=== PATIENT | female | born 1965 | race Caucasian/White ===

== ENCOUNTER 2023-08-27 06:12 | Day surgery (SDC) | payer OTHER ==
[2023-08-27 06:28] VITALS: RESP 18
[2023-08-27] MEDS ORDERED: Lactated Ringers 1,000 ML IV SCH (06:30)
[2023-08-27] MEDS ORDERED: Xylocaine-Mpf 2% 5 Ml Vial ONE (07:49)
[2023-08-27] MEDS ORDERED: Versed 2 MG/2 ML Injection ONE (07:50)
[2023-08-27] MEDS ORDERED: DIPRIVAN 200 MG/20 ML IV ONE ×2 (07:50→08:12)
[2023-08-27 08:55] LABS: Absolute Neutrophil Ct (ANC) 4.23 x10^3/uL (1.4-6.9); BASOPHIL % 0.5 % (0.0-0.4); Basophil (Absolute #) 0.03 x10^3/uL (0-0.4); Eosinophil (Absolute #) 0.06 x10^3/uL (0-0.5); Hematocrit 33.2 % (35-47); Hemoglobin 9.6 g/dL (12.0-16.0); IMMATURE GRAN # 0.02 x10^3u/L (0.00-0.03); IMMATURE GRAN % 0.3 % (0.00-0.4); Lymphocyte (Absolute #) 1.37 x10^3/uL (1.0-4.6); Lymphocytes % 22.6 % (24.0-44.0); Mean Cell Volume 78.5 fL (78-100); Mean Corpuscular Hemoglobin 22.7 pg (26-32); Mean Corpuscular Hgb Concent. 28.9 g/dL (32-36); Mean Platelet Volume 10.6 fL (7.5-11.0); Monocyte (Absolute #) 0.35 x10^3/uL (0.0-1.3); Monocytes % 5.8 % (0.0-12.0); Neutrophil % 69.8 % (36.0-66.0); Platelet Count 213 x10^3/uL (150-450); Red Blood Count 4.23 x10^6/uL (4.1-5.4); Red Cell Distribution Width 16.5 % (11.5-14.0); White Blood Count 6.1 x10^3/uL (4.0-10.5)
[2023-08-27 09:08] LABS: ALBUMIN 4.1 g/dL (3.5-5.0); ANION GAP 13.9 MEQ/L (5-15); BILIRUBIN,TOTAL 0.2 mg/dL (0.2-1.3); Calcium 8.8 mg/dL (8.4-10.2); Creatinine 1 0.75 mg/dL (0.52-1.04); EST GLOMERULAR FILTRATION RATE 91.7 ML/MIN; Total Protein 6.9 g/dL (6.3-8.2)
[2023-08-27 09:17] VITALS: O2SAT 93
[2023-08-27 09:34] LABS: Slide Review 1 YES
[2023-08-27 10:01] VITALS: BP 154/94; PULSE 84; TEMP 98.2
--- NOTE | 2023-08-27 10:13 | XRAY ---
Indication: Sigmoid mass on colonoscopy. Multiple contiguous axial images obtained through the abdomen and pelvis prior to and following 80 cc Isovue 370 contrast as ordered. Comparison: None Lung bases demonstrate dependent atelectasis. No infiltrate or effusion. Heart not enlarged. Noncontrasted images negative for pathologic visceral calcification/calculi. Noncontrasted stomach and bowel loops appear nonobstructed. No free fluid/air. Postcontrast images demonstrates normal visceral enhancement and renal excretion. Remaining liver, gallbladder, pancreas, spleen, adrenal glands, kidneys, ureters, bladder, and uterus are unremarkable. Mild scattered aortoiliac calcifications. No AAA or pathologic retroperitoneal lymphadenopathy. Osseous structures intact with minimal degenerative changes throughout the lumbar spine. No suspicious bony lesions. Impression: Mild arteriosclerotic disease and lung dependent atelectasis. Remaining CT abdomen/pelvis with and without contrast exam is negative.
--- NOTE | 2023-08-27 15:06 | OP ---
SURGERY DATE/TIME: 08/27/2023 0751 PREOPERATIVE DIAGNOSIS: Positive Cologuard test. POSTOPERATIVE DIAGNOSIS: Sigmoid colon mass. PROCEDURE: Colonoscopy with cold forceps biopsy. SURGEON: Dr. Koch. ANESTHESIA: Medications given by anesthesia department. HISTORY: The patient is a 58-year-old white female presenting now for colonoscopy after having had a positive Cologuard. The patient also reports she has been having some bleeding that she thought was just due to her hemorrhoid. The patient was felt to need to have endoscopic evaluation. She was described of the risks of the procedure including the risk of perforation, phlebitis, untoward reaction to medication, bleeding and missed lesions. The patient verbalized her understanding and desired to have the procedure performed. DESCRIPTION OF PROCEDURE: The patient was given the medications by the anesthesia department. She had continuous pulse oximetry, ECG monitoring and intermittent blood pressure monitoring during the examination. She was placed in the left lateral decubitus position. A digital rectal examination was performed and revealed normal anal sphincter tone and no masses. The flexible Olympus pediatric colonoscope was used to intubate the rectum. A view of the colon was developed sequentially to the cecum. Upon insertion and withdrawal was noted a large colon polyp/mass which was biopsied multiple times using cold forceps biopsy instrument. It is not felt that it could be removed with a snare due to its size. No other polyps or lesions were noted in the colon. The scope was withdrawn and the patient was taken to the recovery room in good condition. The prep was noted to be fair to good.
== END 2023-08-27 10:05 | disposition home or self-care (01) ==
LOC: SDC 06:12
PROVIDERS: ATTEND Family Medicine
DX: C18.7 Malignant neoplasm of sigmoid colon (principal); R19.5 Other fecal abnormalities
CPT/HCPCS: 36415; 74178; 80053; 82378; 85025; J2250; J2704

== ENCOUNTER 2023-09-15 09:21 | Inpatient (IN) | payer OTHER ==
[2023-09-15] MEDS ORDERED: Lactated Ringers 1,000 ML IV SCH (09:30)
[2023-09-15] MEDS ORDERED: MEFOXIN 2 GM PREMIX** 2 GM/50 ML ML IV SCH (10:00)
[2023-09-15] MEDS ORDERED: MEFOXIN 2 GM PREMIX** 2 GM/50 ML ML IV ONE (10:04)
[2023-09-15] MEDS ORDERED: Lactated Ringers 1,000 ML IV ONE ×2 (10:05→12:01)
[2023-09-15 10:21] LABS: Absolute Neutrophil Ct (ANC) 5.49 x10^3/uL (1.4-6.9); BASOPHIL % 0.6 % (0.0-0.4); Basophil (Absolute #) 0.05 x10^3/uL (0-0.4); Eosinophil % 1.2 % (0.00-5.0); Eosinophil (Absolute #) 0.09 x10^3/uL (0-0.5); Hematocrit 38.7 % (35-47); Hemoglobin 11.5 g/dL (12.0-16.0); IMMATURE GRAN # 0.01 x10^3u/L (0.00-0.03); IMMATURE GRAN % 0.1 % (0.00-0.4); Lymphocyte (Absolute #) 1.67 x10^3/uL (1.0-4.6); Lymphocytes % 21.5 % (24.0-44.0); Mean Cell Volume 77.7 fL (78-100); Mean Corpuscular Hemoglobin 23.1 pg (26-32); Mean Corpuscular Hgb Concent. 29.7 g/dL (32-36); Mean Platelet Volume 11.1 fL (7.5-11.0); Monocyte (Absolute #) 0.46 x10^3/uL (0.0-1.3); Monocytes % 5.9 % (0.0-12.0); Neutrophil % 70.7 % (36.0-66.0); Platelet Count 252 x10^3/uL (150-450); Red Blood Count 4.98 x10^6/uL (4.1-5.4); Red Cell Distribution Width 17.7 % (11.5-14.0); White Blood Count 7.8 x10^3/uL (4.0-10.5)
[2023-09-15 10:34] LABS: ANION GAP 13.6 MEQ/L (5-15); Calcium 9.1 mg/dL (8.4-10.2); Creatinine 1 0.7 mg/dL (0.52-1.04); EST GLOMERULAR FILTRATION RATE 99.6 ML/MIN
[2023-09-15] MEDS ORDERED: Pre-Attached Lta Kit TP ONE (10:48)
[2023-09-15] MEDS ORDERED: OFIRMEV 100 ML IV ONE (10:48)
[2023-09-15] MEDS ORDERED: Sensorcaine 0.25% 10 ML ONE (10:51)
[2023-09-15] MEDS ORDERED: Zemuron 100 MG/10 ML ONE (10:53)
[2023-09-15] MEDS ORDERED: Decadron 4 MG INJ ONE (10:53)
[2023-09-15] MEDS ORDERED: DIPRIVAN 200 MG/20 ML IV ONE ×2 (10:53→11:42)
[2023-09-15] MEDS ORDERED: BRIDION 200MG/2ML IV ONE (10:53)
[2023-09-15] MEDS ORDERED: Xylocaine-Mpf 2% 5 Ml Vial ONE (10:53)
[2023-09-15] MEDS ORDERED: Versed 2 MG/2 ML Injection ONE (10:53)
[2023-09-15] MEDS ORDERED: Zofran 4 MG/2 ML VIAL ONE ×2 (10:53→14:03)
[2023-09-15] MEDS ORDERED: SUBLIMAZE 100 MCG/2 ML ONE ×3 (10:57→14:04)
[2023-09-15] MEDS ORDERED: Ephedrine Sulfate 50 MG/ML ONE (11:48)
[2023-09-15] MEDS ORDERED: DEXMEDETOMIDINE 80 MCG/20ML-NS IV ONE (12:04)
[2023-09-15] MEDS ORDERED: Hydromorphone 1 mg/ml Injection ONE (14:23)
[2023-09-15] MEDS: MORPHINE SULFATE 2 MG INJ IV PRN ×2 (16:21→18:18)
[2023-09-15] MEDS: D5W/0.45NS W/ 20mEq KCl 1000 ML 1,000 ML IV SCH (17:38)
[2023-09-15] MEDS: MEFOXIN 1 Gm/ D5W 50 Ml** 1 G/50 ML ML IV SCH ×2 (17:38→23:20)
[2023-09-15] MEDS: NORCO 7.5/325 MG TAB PO PRN ×2 (20:04→23:53)
[2023-09-16] MEDS: D5W/0.45NS W/ 20mEq KCl 1000 ML 1,000 ML IV SCH ×2 (03:20→14:42)
[2023-09-16] MEDS: NORCO 7.5/325 MG TAB PO PRN ×5 (04:58→21:15)
[2023-09-16] MEDS: MEFOXIN 1 Gm/ D5W 50 Ml** 1 G/50 ML ML IV SCH ×2 (05:01→11:02)
[2023-09-16 05:44] LABS: Hematocrit 33.2 % (35-47); Hemoglobin 9.8 g/dL (12.0-16.0); Mean Cell Volume 78.5 fL (78-100); Mean Corpuscular Hemoglobin 23.2 pg (26-32); Mean Corpuscular Hgb Concent. 29.5 g/dL (32-36); Mean Platelet Volume 11.1 fL (7.5-11.0); Platelet Count 223 x10^3/uL (150-450); Red Blood Count 4.23 x10^6/uL (4.1-5.4); Red Cell Distribution Width 18.1 % (11.5-14.0); White Blood Count 14.8 x10^3/uL (4.0-10.5)
[2023-09-16] MEDS: Singulair 10 MG PO SCH (09:06)
[2023-09-16] MEDS: FEOSOL 325 MG PO SCH (09:06)
[2023-09-16] MEDS: Paxil 20 MG PO SCH (09:07)
[2023-09-16] MEDS: Protonix 40MG Tablet PO SCH (09:07)
[2023-09-16] MEDS: ENOXAPARIN SODIUM SQ SCH ×2 (09:07→21:15)
[2023-09-16] MEDS: SYNTHROID 88 MCG PO SCH (09:08)
[2023-09-16] MEDS ORDERED: NON-FORMULARY ITEM (Omeprazole [Omeprazole] 20 MG Capsule.Dr) PO SCH (10:00)
[2023-09-16] MEDS: Sodium Chloride 0.9% 1000 ML 1,000 ML IV SCH (16:35)
[2023-09-16] MEDS: Zofran 4 MG/2 ML VIAL IV PRN (22:46)
[2023-09-17] MEDS ORDERED: Zofran 4 MG/2 ML VIAL IV STA (00:14)
[2023-09-17] MEDS: MORPHINE SULFATE 2 MG INJ IV PRN (01:25)
[2023-09-17] MEDS: Sodium Chloride 0.9% 1000 ML 1,000 ML IV SCH ×2 (02:12→15:44)
[2023-09-17] MEDS: NORCO 7.5/325 MG TAB PO PRN ×4 (06:24→19:20)
[2023-09-17] MEDS: ENOXAPARIN SODIUM SQ SCH ×2 (09:39→21:26)
[2023-09-17] MEDS: FEOSOL 325 MG PO SCH (09:46)
[2023-09-17] MEDS: Paxil 20 MG PO SCH (09:47)
[2023-09-17] MEDS: Singulair 10 MG PO SCH (09:50)
[2023-09-17] MEDS: Protonix 40MG Tablet PO SCH (09:50)
[2023-09-17] MEDS: SYNTHROID 88 MCG PO SCH (09:51)
--- NOTE | 2023-09-17 10:56 | OP ---
SURGERY DATE/TIME: 09/16/2023 1117 PREOPERATIVE DIAGNOSIS: Biopsy proven invasive sigmoid colon cancer. The lesion was confirmed at the intraoperative preoperative flexible sigmoidoscopy today. POSTOPERATIVE DIAGNOSIS: Biopsy proven invasive sigmoid colon cancer. The lesion was confirmed at the intraoperative preoperative flexible sigmoidoscopy today. PROCEDURES: 1) Preoperative limited flexible sigmoidoscopy to 40. 2) Sigmoid colon resection with primary anastomosis for cancer. SURGEON: Hardeep Rodriguez M.D. ANESTHESIA: General. ESTIMATED BLOOD LOSS: None. DRAINS: none. CONDITION: Stable. INDICATION: A patient with a recent positive Cologuard, positive colonoscopy. Sigmoid biopsy showed invasive cancer. She was immediately scheduled for intervention. DESCRIPTION OF PROCEDURE: She was taken to surgery. General anesthetic. Left side down, right side up. Anal digital examination satisfactory. Scope introduced. The lesion was at 16 cm. The lesion consistent with the biopsy which showed invasive cancer. A lower midline incision and the left gutter was loosened up. The sigmoid was taken away from the ovary. There was a little bit of old endometriosis. Both ovaries are small. Uterus is becoming significantly atrophic. Just a wisp of suggestion of chocolate cyst disease in the pelvis. The sigmoid mobilized from the left tube and ovary. A formal sigmoid colon resection backing off the sigmoid rectal junction coming up the descending colon, sigmoid junction. Mesentery taken down to the presacral promontory taken with a ligature in a wedge-type fashion. Hemostasis satisfactory. Left ureter was out of the field. Right ureter was clearly out of the field. Side began. The side was long enough to resect another 1 inch off of the proximal and sent as additional proximal margin. Hand sewn side-to-end anastomosis was placed and tied down. Anterior lip placed and tied down. There was no blood loss. There was no drainage. There were no drains placed. The field was irrigated and suctioned around the uterus, a little bit of broad band anterior abdominal wall closed with looped 0 PDS. Copiously irrigated with saline. Skin closed with patsy. Sterile dressing applied. Specimen and findings were discussed with the family in the waiting room. Very encouraging. Polypoid was just trace on the base. No palpable lymph nodes. Early stage lesion.
[2023-09-18] MEDS: NORCO 7.5/325 MG TAB PO PRN ×3 (00:56→22:21)
[2023-09-18] MEDS: ENOXAPARIN SODIUM SQ SCH ×2 (09:54→21:37)
[2023-09-18] MEDS: Paxil 20 MG PO SCH (09:55)
[2023-09-18] MEDS: Protonix 40MG Tablet PO SCH (09:55)
[2023-09-18] MEDS: Singulair 10 MG PO SCH (09:56)
[2023-09-18] MEDS: FEOSOL 325 MG PO SCH (09:56)
[2023-09-18] MEDS: SYNTHROID 88 MCG PO SCH (09:57)
[2023-09-18] MEDS: Zofran 4 MG/2 ML VIAL IV PRN ×2 (12:47→21:37)
[2023-09-18] MEDS: MORPHINE SULFATE 2 MG INJ IV PRN (12:48)
[2023-09-18] MEDS: Sodium Chloride 0.9% 1000 ML 1,000 ML IV SCH ×2 (14:47→21:37)
[2023-09-18] MEDS ORDERED: GLYCERIN ADULT SUPPOSITORY RC ONE (15:05)
[2023-09-18] MEDS ORDERED: Compazine 5 MG PO PRN (15:24)
[2023-09-18] MEDS ORDERED: MILK OF MAGNESIA 30 ML PO ONE (17:59)
[2023-09-18] MEDS: Compazine 10 MG/2 ML IV PRN (18:05)
[2023-09-19 08:15] LABS: Hematocrit 35.6 % (35-47); Hemoglobin 10.4 g/dL (12.0-16.0); Mean Corpuscular Hemoglobin 23.4 pg (26-32); Mean Corpuscular Hgb Concent. 29.2 g/dL (32-36); Platelet Count 260 x10^3/uL (150-450); Red Blood Count 4.45 x10^6/uL (4.1-5.4); Red Cell Distribution Width 18.1 % (11.5-14.0); White Blood Count 9.6 x10^3/uL (4.0-10.5)
[2023-09-19 08:22] LABS: ALBUMIN 3.6 g/dL (3.5-5.0); ANION GAP 13.7 MEQ/L (5-15); BILIRUBIN,TOTAL 0.4 mg/dL (0.2-1.3); Calcium 8.8 mg/dL (8.4-10.2); Creatinine 1 0.56 mg/dL (0.52-1.04); EST GLOMERULAR FILTRATION RATE 105.1 ML/MIN; Potassium 3.7 mmol/L (3.5-5.1); Total Protein 6.6 g/dL (6.3-8.2)
[2023-09-19] MEDS: Paxil 20 MG PO SCH (09:00)
[2023-09-19] MEDS: Singulair 10 MG PO SCH (09:00)
[2023-09-19] MEDS: SYNTHROID 88 MCG PO SCH (09:00)
[2023-09-19] MEDS: FEOSOL 325 MG PO SCH (09:01)
[2023-09-19] MEDS: ENOXAPARIN SODIUM SQ SCH ×2 (09:01→22:04)
[2023-09-19] MEDS: Protonix 40MG Tablet PO SCH (09:01)
[2023-09-19] MEDS: Sodium Chloride 0.9% 1000 ML 1,000 ML IV SCH ×3 (09:47→22:02)
--- NOTE | 2023-09-19 12:25 | PCM.HP ---
History of Present Illness - Chief Complaint Chief Complaint: sigmoid colon cancer Date: 09/19/23 History of Present Illness: is a 58 year old female with a pmhx of hypothyroidism, GERD, and anxiety admitted under Dr. Rodriguez 09/15/23 for a colon resection due to a cancerous mass. Patient is PODS# 4 with +BM, +flatus, and tolerating a CLD although she did have some nausea/vomiting yesterday. During hospitalization patient has been unable to wean off of 1L oxygen, she has been tachycardic with HR in the 130/140's, and BP has been elevated in the 180/90's. Patient endorses that her shortness of breath is mostly with exertion. She also states that she has been having a "racing heartbeat" and can "feel my heart beat in my forehead" with any exertion. She feels her pain is under control and rates it 4/10, she prefers not to use pain medication due to them making her "feel weird." Hospitalist team is consulted for medical management. - Review of Systems Constitutional: Fatigue, Weakness Eyes: No Symptoms Ears, Nose, & Throat: No Symptoms Respiratory: Short Of Breath Cardiac: Palpitations, Other (racing HR) Abdominal/Gastrointestinal: Abdominal Pain (at incision site /10) Genitourinary Symptoms: No Symptoms Musculoskeletal: No Symptoms Skin: Other (Surgical incision to LLQ abdomen) Neurological: No Symptoms Psychological: Anxiety Endocrine: No Symptoms Hematologic/Lymphatic: Anemia Immunological/Allergic: No Symptoms Medications & Allergies Home Medications: Home Medication List Omeprazole 20 mg PO DAILY 08/23/23 [History Confirmed 09/15/23] PARoxetine HCL [Paroxetine HCl] 15 mg PO DAILY 08/23/23 [History Confirmed 09/15/23] Ferrous Sulfate [Iron] 325 mg PO DAILY 09/15/23 [History Confirmed 09/15/23] Levothyroxine Sodium 88 Mcg [Synthroid 88 Mcg] 88 mcg PO DAILY 09/15/23 [History Confirmed 09/15/23] Montelukast Sodium 10 mg [Singulair 10 MG] 10 mg PO DAILY 09/15/23 [History Confirmed 09/15/23] Allergies/Adverse Reactions: Allergies Allergy/AdvReac Type Severity Reaction Status Date / Time No Known Drug Allergies Allergy Verified 09/15/23 09:28 - Past Medical History Past Medical History: Yes GI Medical History: GERD Pyscho-Social History: Anxiety Reproductive Disorders: Other Comment: eptopic - Female History Are you now?: No - Past Surgical History Past Surgical History: Yes Female Surgical History: Tubal Ligation Other Surgical History: dental work - Social History Smoking Status: Former smoker (quit 10 years ago) Exposure to second hand smoke: No Alcohol: None Drug Use: none - Physical Exam Vital Signs: Vital Signs - 24 hr Temp Pulse Resp BP Pulse Ox 09/19/23 12:00 16 09/19/23 11:55 97.3 F 113 H 16 189/91 94 L 09/19/23 08:00 16 09/19/23 07:38 98.8 F 110 H 16 172/86 94 L 09/19/23 06:53 94 L 09/19/23 04:00 97.9 F 106 H 20 143/75 95 09/19/23 00:00 18 09/18/23 23:46 99.4 F 124 H 18 165/86 94 L 09/18/23 20:00 18 09/18/23 19:27 99.2 F 108 H 16 157/75 93 L 09/18/23 19:15 93 L 09/18/23 16:00 97.9 F 114 H 15 172/77 95 General Appearance: no apparent distress Neurologic Exam: alert, oriented x 3, cooperative Eye Exam: PERRL/EOMI Ears, Nose, Throat Exam: normal ENT inspection Neck Exam: normal inspection Respiratory Exam: normal breath sounds, lungs clear Cardiovascular Exam: murmur, tachycardia Gastrointestinal/Abdomen Exam: tenderness, distention Pelvic Exam: not done Rectal Exam: deferred Back Exam: normal inspection Extremity Exam: normal inspection Skin Exam: normal color Wound Assessment: Skin/Wound Assessment Wound/Incision Assessment Start: 09/15/23 09:45 Text: Status: Active Freq: Q4H Protocol: Document 09/19/23 12:00 [facility] (Rec: 09/19/23 12:03 [facility] [id number]) Wound/Incision Assessment Anterior Abdomen Wound Assessment Shift Assessment Wound Type Incision Wound Stage Non Pressure Wound Dressing Status Dry & Intact Drainage Amount None General Appearance Clean/Dry Primary Dressing Absorbant Pad Comment Dressing C/D/I, no shadowing noted. Wound Photo Photo Taken No Results - Labs Lab/Micro Results: Lab Results-Last 24 Hours 09/19/23 09/19/23 Range/Units 07:50 07:50 WBC 9.6 (4.0-10.5) x10^3/uL RBC 4.45 (4.1-5.4) x10^6/uL Hgb 10.4 L (12.0-16.0) g/dL Hct 35.6 (35-47) % MCV 80.0 (78-100) fL MCH 23.4 L (26-32) pg MCHC 29.2 L (32-36) g/dL RDW 18.1 H (11.5-14.0) % Plt Count 260 (150-450) x10^3/uL MPV 11.0 (7.5-11.0) fL Sodium 136 L (137-145) mmol/L Potassium 3.7 (3.5-5.1) mmol/L Chloride 102 (98-107) mmol/L Carbon Dioxide 24 (22-30) mmol/L Anion Gap 13.7 (5-15) MEQ/L BUN 8 (7-17) mg/dL Creatinine 0.56 (0.52-1.04) mg/dL Estimated GFR 105.1 ML/MIN Glucose 115 H (74-106) mg/dL Calcium 8.8 (8.4-10.2) mg/dL Total Bilirubin 0.40 (0.2-1.3) mg/dL AST 22 (14-36) U/L ALT 18 (0-35) U/L Alkaline Phosphatase 62 (38-126) U/L Serum Total Protein 6.6 (6.3-8.2) g/dL Albumin 3.6 (3.5-5.0) g/dL Microbiology 09/15/23 12:45 Urine Culture - Final Urine, Void NO GROWTH Assessment/Plan (1) Tachycardia Current Visit: Yes Status: Acute Assessment & Plan: -No chest pain -EKG -Ddimer -CXR -Echo -TSH -metoprolol 12.5mg Code(s): R00.0 - TACHYCARDIA, UNSPECIFIED (2) Shortness of breath Current Visit: Yes Status: Acute Assessment & Plan: -On 1L, RA at baseline -RT consult -Nebs/INH prn -Supplemental oxygen for goal spo2>92 -CXR Code(s): R06.02 - SHORTNESS OF BREATH (3) HTN (hypertension) Current Visit: Yes Status: Acute Assessment & Plan: -Metoprolol 125 -Hydralazine prn -Continue to monitor and adjust as appropriate Code(s): I10 - ESSENTIAL (PRIMARY) HYPERTENSION (4) S/P colon resection Current Visit: Yes Status: Acute Assessment & Plan: -Surgery following -PODS#4 -FLD, +BM + flatus -Continue anti-emetics/pain control Code(s): Z90.49 - ACQUIRED ABSENCE OF OTHER SPECIFIED PARTS OF DIGESTIVE TRACT (5) Anemia Current Visit: Yes Status: Acute Assessment & Plan: -Continue to monitor and replace if hgb <7 Code(s): D64.9 - ANEMIA, UNSPECIFIED
[2023-09-19] MEDS: TYLENOL 325 MG PO PRN ×2 (13:00→17:00)
[2023-09-19] MEDS ORDERED: Lopressor 25MG Tab PO SCH (13:00)
[2023-09-19] MEDS: Zofran 4 MG/2 ML VIAL IV PRN ×2 (13:02→19:39)
--- NOTE | 2023-09-19 13:25 | XRAY ---
CLINICAL HISTORY:sob COMPARISON:None. TECHNIQUE:X-ray chest AP view (1 view). FINDINGS: Suboptimal inspiratory effort. Cardiomediastinal silhouette cannot be commented due to AP projection. Patchy infiltrates are seen in both lower lung zones with few atelectatic changes. A possible small left sided pleural effusion is also seen, would recommend ultrasound correlation. Unfolding of aorta seen with calcification of thoracic aorta. Right costophrenic angle is sharp. Visualized bones show mild degenerative changes. IMPRESSION: 1.Patchy infiltrates in both lower lung zones with few atelectatic changes. 2. Possible small left-sided pleural effusion is also seen, would recommend ultrasound correlation. 3. For clinical correlation and follow-up. Electronically Signed by: Chad Jackson MD. (09/19/2023 13:21:25 EST)
[2023-09-19 14:06] LABS: MAGNESIUM 1.8 mg/dL (1.6-2.3); Risk Ratio 3.4; TSH, 3RD Generation 2.42 mIU/L (0.47-4.68)
--- NOTE | 2023-09-19 15:33 | XRAY ---
CLINICAL HISTORY:r/o PE COMPARISON:X-ray chest dated 09/19/2023 was reviewed. TECHNIQUE:Contiguous axial CT images of the chest were acquired with the administration of intravenous contrast following PE protocol. Coronal and sagittal reconstructions were also obtained. FINDINGS: No evidence of pulmonary embolism till the second-order branches. The scanned pulmonary parenchyma shows bilateral mild pleural effusions with some subpleural fibrotic scars in the posterior segments of both lobes. There are some subpleural opacities in posterobasal segments of both lower lobes with air bronchograms, signifying bibasal atelectasis. Heart size is normal and there is no pericardial effusion. No pathologically enlarged mediastinal, hilar, or axillary lymph node is identified. There is no definite mass lesion in the chest wall. There are mild abdominal ascites mainly at perihepatic and perisplenic region and dilated gut loops in the abdomen, requiring further dedicated evaluation. Mild degenerative changes were seen in the visualized spine, and no lytic/sclerotic lesion is seen in the visualized bones to suggest bony metastasis IMPRESSION: 1. No evidence of pulmonary embolism till the second-order branches. 2. Bilateral mild pleural effusions with bilateral basal atelectasis. 3. Mild abdominal ascites and dilated bowel loops in the upper abdomen, require dedicated CT abdomen for further evaluation. Electronically Signed by: Chad Jackson MD. (09/19/2023 15:30:01 EST)
[2023-09-19] MEDS: APRESOLINE 20 MG/ML INJ IV PRN ×2 (16:01→16:58)
[2023-09-19] MEDS: Compazine 10 MG/2 ML IV PRN (16:11)
[2023-09-20 05:06] LABS: Absolute Neutrophil Ct (ANC) 7.11 x10^3/uL (1.4-6.9); BASOPHIL % 0.3 % (0.0-0.4); Basophil (Absolute #) 0.03 x10^3/uL (0-0.4); Eosinophil % 0.2 % (0.00-5.0); Eosinophil (Absolute #) 0.02 x10^3/uL (0-0.5); Hematocrit 33.3 % (35-47); IMMATURE GRAN # 0.08 x10^3u/L (0.00-0.03); IMMATURE GRAN % 0.9 % (0.00-0.4); Lymphocyte (Absolute #) 0.95 x10^3/uL (1.0-4.6); Lymphocytes % 10.7 % (24.0-44.0); Mean Corpuscular Hemoglobin 23.4 pg (26-32); Mean Platelet Volume 10.9 fL (7.5-11.0); Monocyte (Absolute #) 0.69 x10^3/uL (0.0-1.3); Monocytes % 7.8 % (0.0-12.0); Neutrophil % 80.1 % (36.0-66.0); Platelet Count 260 x10^3/uL (150-450); Red Blood Count 4.27 x10^6/uL (4.1-5.4); Red Cell Distribution Width 18.6 % (11.5-14.0); White Blood Count 8.9 x10^3/uL (4.0-10.5)
--- NOTE | 2023-09-20 05:07 | PCM.NOTE ---
Date and Time: 09/20/23 0506 Subjective Assessment: is a 58 year old female with a pmhx of hypothyroidism, GERD, and anxiety admitted under Dr. Rodriguez 09/15/23 for a colon resection due to a cancerous mass. Patient is PODS# 4 with +BM, +flatus, and tolerating a CLD although she did have some nausea/vomiting yesterday. During hospitalization patient has been unable to wean off of 1L oxygen, she has been tachycardic with HR in the 130/140's, and BP has been elevated in the 180/90's. Patient endorses that her shortness of breath is mostly with exertion. She also states that she has been having a "racing heartbeat" and can "feel my heart beat in my forehead" with any exertion. She feels her pain is under control and rates it 4/10, she prefers not to use pain medication due to them making her "feel weird." Hospitalist team is consulted for medical management. 09/20: Met with patient bedside. Endorses nausea with vomiting today. HR and BP remain elevated. Metoprolol increased. CTA negative for PE. Surgery advised KUB which shows post surgical ileus. Patient now NPO, consider NG tube if vomiting continues. Provided abdominal binder which is helping with pain. Denies fever,cough, sob, cp, COR[place], dizziness, D. - Review of Systems Constitutional: No Symptoms Eyes: No Symptoms Ears, Nose, & Throat: No Symptoms Respiratory: No Symptoms Cardiac: Palpitations Abdominal/Gastrointestinal: Abdominal Pain, Nausea, Vomiting Genitourinary Symptoms: No Symptoms Musculoskeletal: No Symptoms Skin: No Symptoms Neurological: No Symptoms Psychological: No Symptoms Endocrine: No Symptoms Hematologic/Lymphatic: No Symptoms Objective Exam General Appearance: no apparent distress Neurologic Exam: alert, oriented x 3, cooperative Skin Exam: normal color Wound Assessment: Skin/Wound Assessment Wound/Incision Assessment Start: 09/15/23 09:45 Text: Status: Active Freq: Q4H Protocol: Document 09/20/23 03:31 [facility] (Rec: 09/20/23 03:39 [facility] [id number]) Wound/Incision Assessment Anterior Abdomen Wound Assessment Shift Assessment Wound Type Incision Wound Stage Non Pressure Wound Dressing Status Dry & Intact Drainage Amount None General Appearance Clean/Dry Primary Dressing Absorbant Pad Comment Dressing CDi Eye Exam: PERRL Ears, Nose, Throat Exam: dry mucous membranes Neck Exam: normal inspection Respiratory Exam: normal breath sounds, lungs clear Cardiovascular Exam: tachycardia Gastrointestinal/Abdomen Exam: tenderness, distention, other (hypoactive BS x 4 quads incision site midline CDI) Extremity Exam: normal inspection Back Exam: normal inspection OBJECTIVE DATA Vital Signs: Vital Signs - 24 hr Temp Pulse Resp BP Pulse Ox 09/20/23 03:00 98.3 F 116 H 13 177/85 93 L 09/20/23 00:00 18 09/19/23 23:00 98.6 F 105 H 17 177/82 94 L 09/19/23 20:00 20 09/19/23 19:53 99.1 F 109 H 26 H 168/81 93 L 09/19/23 18:35 92 L 09/19/23 18:06 170/80 09/19/23 16:51 104 H 191/89 09/19/23 15:54 18 09/19/23 15:45 202/98 09/19/23 15:09 98.9 F 101 H 18 184/89 90 L 09/19/23 12:00 16 09/19/23 11:55 97.3 F 113 H 16 189/91 94 L 09/19/23 08:00 16 09/19/23 07:38 98.8 F 110 H 16 172/86 94 L 09/19/23 06:53 94 L Pain Assessment - Last Documented Pain Intensity [Anterior 6 Medial] Pain Intensity 1 Pain Scale Used 0-10 Pain Scale Intake and Output: Intake & Output 09/17/23 09/18/23 09/19/23 09/20/23 11:59 11:59 11:59 11:59 Intake Total 2745 1501 1974 2354 Balance 2745 1501 1974 2354 Weight 68.9 kg Lab Results: Lab Results-Last 24 Hours 09/19/23 09/19/23 09/19/23 Range/Units 07:50 07:50 12:33 WBC 9.6 (4.0-10.5) x10^3/uL RBC 4.45 (4.1-5.4) x10^6/uL Hgb 10.4 L (12.0-16.0) g/dL Hct 35.6 (35-47) % MCV 80.0 (78-100) fL MCH 23.4 L (26-32) pg MCHC 29.2 L (32-36) g/dL RDW 18.1 H (11.5-14.0) % Plt Count 260 (150-450) x10^3/uL MPV 11.0 (7.5-11.0) fL D-Dimer 2.60 H* (0.0-0.50) mg/L Sodium 136 L (137-145) mmol/L Potassium 3.7 (3.5-5.1) mmol/L Chloride 102 (98-107) mmol/L Carbon Dioxide 24 (22-30) mmol/L Anion Gap 13.7 (5-15) MEQ/L BUN 8 (7-17) mg/dL Creatinine 0.56 (0.52-1.04) mg/dL Estimated GFR 105.1 ML/MIN Glucose 115 H (74-106) mg/dL Calcium 8.8 (8.4-10.2) mg/dL Magnesium (1.6-2.3) mg/dL Total Bilirubin 0.40 (0.2-1.3) mg/dL AST 22 (14-36) U/L ALT 18 (0-35) U/L Alkaline Phosphatase 62 (38-126) U/L Serum Total Protein 6.6 (6.3-8.2) g/dL Albumin 3.6 (3.5-5.0) g/dL Triglycerides (30-150) mg/dL Cholesterol (50-200) mg/dL LDL Cholesterol (30-100) mg/dL HDL Cholesterol (40-60) mg/dL Heart Disease Risk Ratio TSH 3rd Generation (0.47-4.68) mIU/L 09/19/23 Range/Units 12:34 WBC (4.0-10.5) x10^3/uL RBC (4.1-5.4) x10^6/uL Hgb (12.0-16.0) g/dL Hct (35-47) % MCV (78-100) fL MCH (26-32) pg MCHC (32-36) g/dL RDW (11.5-14.0) % Plt Count (150-450) x10^3/uL MPV (7.5-11.0) fL D-Dimer (0.0-0.50) mg/L Sodium (137-145) mmol/L Potassium (3.5-5.1) mmol/L Chloride (98-107) mmol/L Carbon Dioxide (22-30) mmol/L Anion Gap (5-15) MEQ/L BUN (7-17) mg/dL Creatinine (0.52-1.04) mg/dL Estimated GFR ML/MIN Glucose (74-106) mg/dL Calcium (8.4-10.2) mg/dL Magnesium 1.8 (1.6-2.3) mg/dL Total Bilirubin (0.2-1.3) mg/dL AST (14-36) U/L ALT (0-35) U/L Alkaline Phosphatase (38-126) U/L Serum Total Protein (6.3-8.2) g/dL Albumin (3.5-5.0) g/dL Triglycerides 165 H (30-150) mg/dL Cholesterol 152 (50-200) mg/dL LDL Cholesterol 86 (30-100) mg/dL HDL Cholesterol 44 (40-60) mg/dL Heart Disease Risk Ratio 3.4 TSH 3rd Generation 2.420 (0.47-4.68) mIU/L Radiology Exams: Radiology Procedures Category Date Time Status CHEST 1 VIEW (PORTABLE) Stat Exams 09/19/23 12:34 Completed CHEST WITH CONTRAST [CT] Stat Exams 09/19/23 13:14 Completed ECHO W/2D AND DOPPLER [US] Stat Exams 09/19/23 12:33 Taken Multi-Disciplinary Progress Notes: Multi-Disciplinary Progress Notes 09/19/23 10:06 Case Management Note by Yoselin Boss S/W PATIENT- SHE CONTINUES TO DENY ANY NEW NEEDS AT TIME OF DC. PATIENT STILL ON O2 AT THIS TIME. PATIENT GIVEN CHOICE OF PROVIDERS IF OXYGEN NEEDED AT DC- SHE WOULD LIKE TO USE [facility]. OTHERWISE SHE PLANS TO DC HOME TO HER PLF AT TIME OF DC Initialized on 09/19/23 10:06 - END OF NOTE 09/19/23 07:05 Respiratory Note by Valorie Motley PT'S O2 SAT ON ROOM AIR WHILE AT REST WAS 88%. PT WAS PLACED BACK ON 1LPM VIA NASAL CANNULA. O2 SAT INCREASED TO 93%. Initialized on 09/19/23 07:05 - END OF NOTE Assessment/Plan (1) Tachycardia Current Visit: Yes Status: Acute Assessment & Plan: -No chest pain -EKG -Ddimer -CXR -Echo -TSH -metoprolol 12.5mg 09/20: -EKG with sinus tach otherwise unremarkable -TSH wnl -Ddimer elevated, CTA negative for PE -Echo pending -HR/BP still not controlled, will increase metoprolol to 25mg Code(s): R00.0 - TACHYCARDIA, UNSPECIFIED (2) Shortness of breath Current Visit: Yes Status: Acute Assessment & Plan: -On 1L, RA at baseline -RT consult -Nebs/INH prn -Supplemental oxygen for goal spo2>92 -CXR Code(s): R06.02 - SHORTNESS OF BREATH (3) HTN (hypertension) Current Visit: Yes Status: Acute Assessment & Plan: -Metoprolol 125 -Hydralazine prn -Continue to monitor and adjust as appropriate Code(s): I10 - ESSENTIAL (PRIMARY) HYPERTENSION (4) S/P colon resection Current Visit: Yes Status: Acute Assessment & Plan: -Surgery following -PODS#4 -FLD, +BM + flatus -Continue anti-emetics/pain control 09/20: -PODS#5 -Abdominal distention -Binder ordered -KUB showing ileus, surgery following, plan for NG if NV continues Code(s): Z90.49 - ACQUIRED ABSENCE OF OTHER SPECIFIED PARTS OF DIGESTIVE TRACT (5) Anemia Current Visit: Yes Status: Acute Assessment & Plan: -Continue to monitor and replace if hgb <7 Code(s): D64.9 - ANEMIA, UNSPECIFIED Additional CC's: VALORIE RODRIGUEZ Code(s): R00.0 - TACHYCARDIA, UNSPECIFIED (2) Shortness of breath Current Visit: Yes Status: Acute Code(s): R06.02 - SHORTNESS OF BREATH (3) HTN (hypertension) Current Visit: Yes Status: Acute Code(s): I10 - ESSENTIAL (PRIMARY) HYPERTENSION (4) S/P colon resection Current Visit: Yes Status: Acute Code(s): Z90.49 - ACQUIRED ABSENCE OF OTHER SPECIFIED PARTS OF DIGESTIVE TRACT (5) Anemia Current Visit: Yes Status: Acute Code(s): D64.9 - ANEMIA, UNSPECIFIED
[2023-09-20 05:22] LABS: ALBUMIN 3.6 g/dL (3.5-5.0); ANION GAP 15.8 MEQ/L (5-15); BILIRUBIN,TOTAL 0.4 mg/dL (0.2-1.3); Calcium 8.9 mg/dL (8.4-10.2); Creatinine 1 0.54 mg/dL (0.52-1.04); MAGNESIUM 1.8 mg/dL (1.6-2.3); Potassium 3.4 mmol/L (3.5-5.1); Total Protein 6.6 g/dL (6.3-8.2)
[2023-09-20] MEDS: Zofran 4 MG/2 ML VIAL IV PRN ×2 (07:31→19:23)
[2023-09-20] MEDS ORDERED: Klor Con PO ONE (08:00)
[2023-09-20] MEDS: TYLENOL 325 MG PO PRN ×2 (09:01→21:35)
[2023-09-20] MEDS: Lopressor 25MG Tab PO SCH (09:01)
--- NOTE | 2023-09-20 09:10 | XRAY ---
Indication: Abdominal distention and pain. Status post partial colectomy September 15, 2023. Comparison: None 2 view abdomen demonstrates mild air distended small bowel loops up to 4 cm with predominantly synchronous fluid leveling and midline cutaneous patsy favoring postoperative ileus. Paucity colonic bowel gas also presumed postoperative. No large free air. Contrasted urinary bladder from recent CT chest PE exam. Remaining solid organs and osseous structures unremarkable. Impression: Radiographic features as detailed favoring postoperative ileus.
[2023-09-20] MEDS: Paxil 20 MG PO SCH (10:39)
[2023-09-20] MEDS: Singulair 10 MG PO SCH (10:39)
[2023-09-20] MEDS: FEOSOL 325 MG PO SCH (10:39)
[2023-09-20] MEDS: SYNTHROID 88 MCG PO SCH (11:00)
[2023-09-20] MEDS: ENOXAPARIN SODIUM SQ SCH ×2 (11:02→21:31)
[2023-09-20] MEDS: Protonix 40MG Tablet PO SCH (11:04)
[2023-09-20] MEDS ORDERED: POTASSIUM CHLORIDE 20 mEq IN WATER 100ML 20 MEQ/100 ML BAG IV ONE (11:24)
[2023-09-20] MEDS ORDERED: Klor Con PO SCH (11:30)
[2023-09-20] MEDS: Sodium Chloride 0.9% 1000 ML 1,000 ML IV SCH (11:35)
[2023-09-20] MEDS ORDERED: PROTONIX 40 MG IV IV SCH (11:45)
[2023-09-20] MEDS: Compazine 10 MG/2 ML IV PRN (12:58)
[2023-09-20] MEDS: SODIUM CHLORIDE 0.45% W/ 20 mEq KCL 1,000 ML IV SCH (18:15)
[2023-09-21] MEDS: Compazine 10 MG/2 ML IV PRN ×2 (00:25→07:39)
[2023-09-21 04:53] LABS: BASOPHIL % 0.4 % (0.0-0.4); Basophil (Absolute #) 0.04 x10^3/uL (0-0.4); Eosinophil % 0.2 % (0.00-5.0); Eosinophil (Absolute #) 0.02 x10^3/uL (0-0.5); Hemoglobin 10.1 g/dL (12.0-16.0); IMMATURE GRAN % 1.1 % (0.00-0.4); Lymphocyte (Absolute #) 1.25 x10^3/uL (1.0-4.6); Lymphocytes % 13.9 % (24.0-44.0); Mean Cell Volume 77.8 fL (78-100); Mean Corpuscular Hemoglobin 23.1 pg (26-32); Mean Corpuscular Hgb Concent. 29.7 g/dL (32-36); Mean Platelet Volume 10.8 fL (7.5-11.0); Monocyte (Absolute #) 0.86 x10^3/uL (0.0-1.3); Monocytes % 9.6 % (0.0-12.0); Neutrophil % 74.8 % (36.0-66.0); Platelet Count 283 x10^3/uL (150-450); Red Blood Count 4.37 x10^6/uL (4.1-5.4); Red Cell Distribution Width 18.7 % (11.5-14.0)
--- NOTE | 2023-09-21 04:59 | PCM.NOTE ---
Date and Time: 09/21/23 0458 Subjective Assessment: is a 58 year old female with a pmhx of hypothyroidism, GERD, and anxiety admitted under Dr. Rodriguez 09/15/23 for a colon resection due to a cancerous mass. Patient is PODS# 4 with +BM, +flatus, and tolerating a CLD although she did have some nausea/vomiting yesterday. During hospitalization patient has been unable to wean off of 1L oxygen, she has been tachycardic with HR in the 130/140's, and BP has been elevated in the 180/90's. Patient endorses that her shortness of breath is mostly with exertion. She also states that she has been having a "racing heartbeat" and can "feel my heart beat in my forehead" with any exertion. She feels her pain is under control and rates it 4/10, she prefers not to use pain medication due to them making her "feel weird." Hospitalist team is consulted for medical management. 09/20: Met with patient bedside. Endorses nausea with vomiting today. HR and BP remain elevated. Metoprolol increased. CTA negative for PE. Surgery advised KUB which shows post surgical ileus. Patient now NPO, consider NG tube if vomiting continues. Provided abdominal binder which is helping with pain. Denies fever,cough, sob, cp, CORONA, dizziness, D. 09/21: Met with patient bedside. Endorses nausea and vomiting this morning. HR and BP improved. Still requiring 1L of oxygen. Patient has be desatting to 84-85% when trying to wean. Patient does have BS x 4 quads, +flatus, +BM. Pain has improved with use of abdominal binder. Surgery recommending to MOON. Currently she is NPO with sips of water. - Review of Systems Constitutional: No Symptoms Eyes: No Symptoms Ears, Nose, & Throat: No Symptoms Respiratory: Short Of Breath Cardiac: No Symptoms Abdominal/Gastrointestinal: Abdominal Pain, Nausea, Vomiting Musculoskeletal: No Symptoms Skin: No Symptoms Neurological: No Symptoms Psychological: No Symptoms Endocrine: No Symptoms Hematologic/Lymphatic: No Symptoms Immunological/Allergic: No Symptoms Objective Exam General Appearance: no apparent distress Neurologic Exam: alert, oriented x 3, cooperative Skin Exam: normal color Wound Assessment: Skin/Wound Assessment Wound/Incision Assessment Start: 09/15/23 09:45 Text: Status: Active Freq: Q4H Protocol: Document 09/21/23 04:00 (Rec: 09/21/23 04:12 [id number]) Wound/Incision Assessment Anterior Abdomen Wound Assessment Shift Assessment Wound Type Incision Wound Stage Non Pressure Wound Dressing Status Dry & Intact Drainage Amount None Primary Dressing Absorbant Pad Comment Dressing C/D/I- Remains true Wound Photo Photo Taken No Eye Exam: PERRL Ears, Nose, Throat Exam: normal ENT inspection Neck Exam: normal inspection Lymphatic Exam: adenopathy Respiratory Exam: crackles/rales (exp) Gastrointestinal/Abdomen Exam: soft, normal bowel sounds Extremity Exam: normal inspection Back Exam: normal inspection Pelvic Exam: deferred Rectal Exam: deferred OBJECTIVE DATA Vital Signs: Vital Signs - 24 hr Temp Pulse Resp BP Pulse Ox 09/21/23 04:00 18 09/21/23 03:00 92 H 18 09/21/23 00:00 18 09/20/23 23:00 98.5 F 104 H 16 139/68 92 L 09/20/23 20:00 17 09/20/23 19:14 92 L 09/20/23 19:00 98.5 F 97 H 16 160/74 91 L 09/20/23 15:00 98.9 F 97 H 16 160/77 92 L 09/20/23 12:00 16 09/20/23 11:00 97.6 F 100 H 16 178/82 92 L 09/20/23 08:09 93 L 09/20/23 08:00 16 09/20/23 07:00 98.6 F 113 H 16 181/89 93 L Pain Assessment - Last Documented Pain Intensity [Anterior 6 Medial] Pain Intensity 2 Pain Scale Used 0-10 Pain Scale Intake and Output: Intake & Output 09/18/23 09/19/23 09/20/23 09/21/23 11:59 11:59 11:59 11:59 Intake Total 1501 1974 2354 800 Balance 1501 1974 2354 800 Weight 68.9 kg Lab Results: Lab Results-Last 24 Hours 09/15/23 09/20/23 09/20/23 Range/Units 12:45 04:47 04:47 WBC 8.9 (4.0-10.5) x10^3/uL RBC 4.27 (4.1-5.4) x10^6/uL Hgb 10.0 L (12.0-16.0) g/dL Hct 33.3 L (35-47) % MCV 78.0 (78-100) fL MCH 23.4 L (26-32) pg MCHC 30.0 L (32-36) g/dL RDW 18.6 H (11.5-14.0) % Plt Count 260 (150-450) x10^3/uL MPV 10.9 (7.5-11.0) fL Gran % 80.1 H (36.0-66.0) % Immature Gran % (Auto) 0.9 H (0.00-0.4) % Nucleat RBC Rel Count 0.0 (0.00-0.1) % Eos # (Auto) 0.02 (0-0.5) x10^3/uL Immature Gran # (Auto) 0.08 H (0.00-0.03) x10^3u/L Absolute Lymphs (auto) 0.95 L (1.0-4.6) x10^3/uL Absolute Monos (auto) 0.69 (0.0-1.3) x10^3/uL Absolute Nucleated RBC 0.00 (0.00-0.01) x10^3u/L Lymphocytes % 10.7 L (24.0-44.0) % Monocytes % 7.8 (0.0-12.0) % Eosinophils % 0.2 (0.00-5.0) % Basophils % 0.3 (0.0-0.4) % Absolute Granulocytes 7.11 H (1.4-6.9) x10^3/uL Basophils # 0.03 (0-0.4) x10^3/uL Sodium 134 L (137-145) mmol/L Potassium 3.4 L (3.5-5.1) mmol/L Chloride 99 (98-107) mmol/L Carbon Dioxide 23 (22-30) mmol/L Anion Gap 15.8 H (5-15) MEQ/L BUN 7 (7-17) mg/dL Creatinine 0.54 (0.52-1.04) mg/dL Estimated GFR 106.0 ML/MIN Glucose 118 H (74-106) mg/dL Calcium 8.9 (8.4-10.2) mg/dL Magnesium 1.8 (1.6-2.3) mg/dL Total Bilirubin 0.40 (0.2-1.3) mg/dL AST 24 (14-36) U/L ALT 17 (0-35) U/L Alkaline Phosphatase 61 (38-126) U/L Serum Total Protein 6.6 (6.3-8.2) g/dL Albumin 3.6 (3.5-5.0) g/dL Surg PTH Specimen SEE COMMENTS 09/20/23 09/20/23 09/21/23 Range/Units 10:18 18:12 04:40 WBC 9.0 (4.0-10.5) x10^3/uL RBC 4.37 (4.1-5.4) x10^6/uL Hgb 10.1 L (12.0-16.0) g/dL Hct 34.0 L (35-47) % MCV 77.8 L (78-100) fL MCH 23.1 L (26-32) pg MCHC 29.7 L (32-36) g/dL RDW 18.7 H (11.5-14.0) % Plt Count 283 (150-450) x10^3/uL MPV 10.8 (7.5-11.0) fL Gran % 74.8 H (36.0-66.0) % Immature Gran % (Auto) 1.1 H (0.00-0.4) % Nucleat RBC Rel Count 0.0 (0.00-0.1) % Eos # (Auto) 0.02 (0-0.5) x10^3/uL Immature Gran # (Auto) 0.10 H (0.00-0.03) x10^3u/L Absolute Lymphs (auto) 1.25 (1.0-4.6) x10^3/uL Absolute Monos (auto) 0.86 (0.0-1.3) x10^3/uL Absolute Nucleated RBC 0.00 (0.00-0.01) x10^3u/L Lymphocytes % 13.9 L (24.0-44.0) % Monocytes % 9.6 (0.0-12.0) % Eosinophils % 0.2 (0.00-5.0) % Basophils % 0.4 (0.0-0.4) % Absolute Granulocytes 6.70 (1.4-6.9) x10^3/uL Basophils # 0.04 (0-0.4) x10^3/uL Sodium (137-145) mmol/L Potassium 3.4 L 3.9 (3.5-5.1) mmol/L Chloride (98-107) mmol/L Carbon Dioxide (22-30) mmol/L Anion Gap (5-15) MEQ/L BUN (7-17) mg/dL Creatinine (0.52-1.04) mg/dL Estimated GFR ML/MIN Glucose (74-106) mg/dL Calcium (8.4-10.2) mg/dL Magnesium (1.6-2.3) mg/dL Total Bilirubin (0.2-1.3) mg/dL AST (14-36) U/L ALT (0-35) U/L Alkaline Phosphatase (38-126) U/L Serum Total Protein (6.3-8.2) g/dL Albumin (3.5-5.0) g/dL Surg PTH Specimen Radiology Exams: Radiology Procedures Category Date Time Status ABDOMEN 2 VIEW Stat Exams 09/20/23 08:02 Completed CHEST 1 VIEW (PORTABLE) Stat Exams 09/19/23 12:34 Completed CHEST WITH CONTRAST [CT] Stat Exams 09/19/23 13:14 Completed ECHO W/2D AND DOPPLER [US] Stat Exams 09/19/23 12:33 Taken Multi-Disciplinary Progress Notes: Multi-Disciplinary Progress Notes 09/20/23 12:43 Case Management Note by Yoselni Boss REVIEWED CHART-NO CHANGE IN DC PLANS AT THIS TIME Initialized on 09/20/23 12:43 - END OF NOTE Assessment/Plan (1) Tachycardia Current Visit: Yes Status: Acute Assessment & Plan: -No chest pain -EKG -Ddimer -CXR -Echo -TSH -metoprolol 12.5mg 09/20: -EKG with sinus tach otherwise unremarkable -TSH wnl -Ddimer elevated, CTA negative for PE -Echo pending -HR/BP still not controlled, will increase metoprolol to 25mg 09/21: -Echo pending -HR/BP improved with increased dose of metoprolol, will continue Code(s): R00.0 - TACHYCARDIA, UNSPECIFIED (2) Shortness of breath Current Visit: Yes Status: Acute Assessment & Plan: -On 1L, RA at baseline -RT consult -Nebs/INH prn -Supplemental oxygen for goal spo2>92 -CXR 09/21: -Unable to wean off of oxygen, requiring 1L -Will consult pulm, appreciate recs -She did have mild pleural effusion and using flutter/IS, will add lasix today to see if this helps Code(s): R06.02 - SHORTNESS OF BREATH (3) HTN (hypertension) Current Visit: Yes Status: Acute Assessment & Plan: -Metoprolol 12.5 increased to 25mg -Hydralazine prn -Continue to monitor and adjust as appropriate 09/21: -Improved with increased dose of metoprolol Code(s): I10 - ESSENTIAL (PRIMARY) HYPERTENSION (4) S/P colon resection Current Visit: Yes Status: Acute Assessment & Plan: -Surgery following -PODS#4 -FLD, +BM + flatus -Continue anti-emetics/pain control 09/20: -PODS#5 -Abdominal distention -Binder ordered -KUB showing ileus, surgery following, plan for NG if NV continues 09/21: -PODS#6 -N/V continues, patient declines NG tube -Pain improving with abdominal binder -BM+, Flatus+, encouraged ambulation, IS/Flutter therapy Code(s): Z90.49 - ACQUIRED ABSENCE OF OTHER SPECIFIED PARTS OF DIGESTIVE TRACT (5) Anemia Current Visit: Yes Status: Acute Assessment & Plan: -Continue to monitor and replace if hgb <7 Code(s): D64.9 - ANEMIA, UNSPECIFIED Additional CC's: BEE RODRIGUEZ Code(s): R00.0 - TACHYCARDIA, UNSPECIFIED Code(s): R00.0 - TACHYCARDIA, UNSPECIFIED (2) Shortness of breath Current Visit: Yes Status: Acute Code(s): R06.02 - SHORTNESS OF BREATH (3) HTN (hypertension) Current Visit: Yes Status: Acute Code(s): I10 - ESSENTIAL (PRIMARY) HYPERTENSION (4) S/P colon resection Current Visit: Yes Status: Acute Code(s): Z90.49 - ACQUIRED ABSENCE OF OTHER SPECIFIED PARTS OF DIGESTIVE TRACT (5) Anemia Current Visit: Yes Status: Acute Code(s): D64.9 - ANEMIA, UNSPECIFIED
[2023-09-21] MEDS: Zofran 4 MG/2 ML VIAL IV PRN (05:05)
[2023-09-21 05:09] LABS: ALBUMIN 3.8 g/dL (3.5-5.0); ANION GAP 16.5 MEQ/L (5-15); BILIRUBIN,TOTAL 0.4 mg/dL (0.2-1.3); Calcium 9.1 mg/dL (8.4-10.2); Creatinine 1 0.58 mg/dL (0.52-1.04); EST GLOMERULAR FILTRATION RATE 104.2 ML/MIN; Potassium 3.5 mmol/L (3.5-5.1); Total Protein 6.7 g/dL (6.3-8.2)
[2023-09-21] MEDS: ENOXAPARIN SODIUM SQ SCH ×2 (09:16→22:03)
[2023-09-21] MEDS: Paxil 20 MG PO SCH (09:16)
[2023-09-21] MEDS: Singulair 10 MG PO SCH (09:17)
[2023-09-21] MEDS: SYNTHROID 88 MCG PO SCH (09:17)
[2023-09-21] MEDS: FEOSOL 325 MG PO SCH (09:17)
[2023-09-21] MEDS: Lopressor 25MG Tab PO SCH (09:17)
[2023-09-21] MEDS: PROTONIX 40 MG IV IV SCH ×2 (09:18→22:04)
[2023-09-21] MEDS: SODIUM CHLORIDE 0.45% W/ 20 mEq KCL 1,000 ML IV SCH (10:21)
[2023-09-21] MEDS ORDERED: Lasix 40 MG/4 ML IV ONE (11:15)
[2023-09-21] MEDS: TYLENOL 325 MG PO PRN (13:07)
--- NOTE | 2023-09-21 14:39 | ECHO ---
DATE OF PROCEDURE: 09/19/2023 CLINICAL INFORMATION: Tachycardia and murmur. The M-mode 2D, and Doppler echocardiogram including color flow Doppler shows limited pulmonic valve window. The left ventricle is normal in size. There is mild concentric left ventricular hypertrophy. There is normal contractility of the left ventricle. The ejection fraction is calculated to be 61%. There is evidence of possible impaired left ventricular relaxation. The right ventricle is grossly normal. The left atrium is normal in size. The interatrial septum is intact. The right atrium is normal. The aortic valve opens well. There is no aortic regurgitation. The mitral valve is normal. The tricuspid valve is normal. The pulmonic valve is not well visualized. The aortic root is normal. There is no pericardial effusion. IMPRESSION: 1) NORMAL CONTRACTILITY OF THE LEFT VENTRICLE. 2) MILD CONCENTRIC LEFT VENTRICULAR HYPERTROPHY. 3) POSSIBLE IMPAIRED LEFT VENTRICULAR RELAXATION. 4) THE HEART RATE IS 104 BEATS/MINUTE.
[2023-09-21] MEDS ORDERED: DUONEB 0.5-3 MG/3 ml Neb IH PRN (14:57)
[2023-09-21] MEDS: solu-MEDROL 40 MG, Sterile H2O 10 ml 1 ML IV SCH ×4 (15:56→22:03)
[2023-09-21] MEDS: ROCEPHIN 1 Gm-D5w 50 ml Bag** 1 G/50 ML IVPB IV SCH (15:56)
[2023-09-21] MEDS: Zithromax 500 MG/ 250 ML NaCl Premix 500 MG/250 ML IVPB IV SCH (17:59)
[2023-09-22] MEDS: SODIUM CHLORIDE 0.45% W/ 20 mEq KCL 1,000 ML IV SCH ×2 (02:39→19:35)
--- NOTE | 2023-09-22 05:12 | PCM.NOTE ---
Date and Time: 09/22/23 0511 Subjective Assessment: is a 58 year old female with a pmhx of hypothyroidism, GERD, and anxiety admitted under Dr. Rodriguez 09/15/23 for a colon resection due to a cancerous mass. Patient is PODS# 4 with +BM, +flatus, and tolerating a CLD although she did have some nausea/vomiting yesterday. During hospitalization patient has been unable to wean off of 1L oxygen, she has been tachycardic with HR in the 130/140's, and BP has been elevated in the 180/90's. Patient endorses that her shortness of breath is mostly with exertion. She also states that she has been having a "racing heartbeat" and can "feel my heart beat in my forehead" with any exertion. She feels her pain is under control and rates it 4/10, she prefers not to use pain medication due to them making her "feel weird." Hospitalist team is consulted for medical management. 09/20: Met with patient bedside. Endorses nausea with vomiting today. HR and BP remain elevated. Metoprolol increased. CTA negative for PE. Surgery advised KUB which shows post surgical ileus. Patient now NPO, consider NG tube if vomiting continues. Provided abdominal binder which is helping with pain. Denies fever,cough, sob, cp, CORONA, dizziness, D. 09/21: Met with patient bedside. Endorses nausea and vomiting this morning. HR and BP improved. Still requiring 1L of oxygen. Patient has be desatting to 84-85% when trying to wean. Patient does have BS x 4 quads, +flatus, +BM. Pain has improved with use of abdominal binder. Surgery recommending to ADAT. Currently she is NPO with sips of water. 09/22: Patient doing well overnight. No longer having N/V, has tolerated CLD, advancing to FLD. She is still requiring oxygen, now at 2L NC. Pulmonlogy has been consulted with recs for solumedrol/ceftriaxone and repeat cxr tomorrow. Patient anxious for discharge. - Review of Systems Constitutional: No Symptoms Eyes: No Symptoms Ears, Nose, & Throat: No Symptoms Respiratory: Cough, Short Of Breath Cardiac: No Symptoms Abdominal/Gastrointestinal: Abdominal Pain Genitourinary Symptoms: No Symptoms Musculoskeletal: No Symptoms Skin: No Symptoms Neurological: No Symptoms Psychological: No Symptoms Endocrine: No Symptoms Objective Exam General Appearance: no apparent distress Neurologic Exam: alert, oriented x 3, cooperative Skin Exam: normal color Wound Assessment: Skin/Wound Assessment Wound/Incision Assessment Start: 09/15/23 09:45 Text: Status: Active Freq: Q4H Protocol: Document 09/22/23 04:00 (Rec: 09/22/23 04:30 [id number]) Wound/Incision Assessment Anterior Abdomen Wound Assessment Shift Assessment Wound Type Incision Wound Stage Non Pressure Wound Dressing Status Dry & Intact Drainage Amount None Primary Dressing Absorbant Pad Comment Dressing C/D/I- Remains true Wound Photo Photo Taken No Eye Exam: PERRL Ears, Nose, Throat Exam: normal ENT inspection Neck Exam: normal inspection Respiratory Exam: normal breath sounds, lungs clear Cardiovascular Exam: normal heart sounds, tachycardia Gastrointestinal/Abdomen Exam: distention Back Exam: normal inspection OBJECTIVE DATA Vital Signs: Vital Signs - 24 hr Temp Pulse Resp BP Pulse Ox 09/22/23 04:00 19 09/22/23 03:00 97.9 F 110 H 22 153/70 90 L 09/22/23 00:00 16 09/21/23 23:00 98.2 F 103 H 16 149/67 90 L 09/21/23 19:24 18 09/21/23 19:06 101 H 18 94 L 09/21/23 19:00 98.1 F 113 H 19 177/87 92 L 09/21/23 16:00 18 09/21/23 15:09 95 H 18 96 09/21/23 15:00 97.1 F 97 H 18 176/86 94 L 09/21/23 12:00 18 09/21/23 11:00 98.5 F 95 H 18 162/78 96 09/21/23 08:00 18 09/21/23 07:39 90 L 09/21/23 07:00 97.9 F 101 H 18 153/86 90 L Pain Assessment - Last Documented Pain Intensity [Anterior 6 Medial] Pain Intensity 0 Pain Scale Used 0-10 Pain Scale Intake and Output: Intake & Output 09/19/23 09/20/23 09/21/23 09/22/23 11:59 11:59 11:59 11:59 Intake Total 1974 4964 900 2440 Balance 1974 2354 900 2440 Lab Results: Lab Results-Last 24 Hours 09/15/23 Range/Units 12:45 Surg PTH Specimen SEE COMMENTS Radiology Exams: Radiology Procedures Category Date Time Status ABDOMEN 2 VIEW Stat Exams 09/20/23 08:02 Completed CHEST 2 VIEWS (PA AND LAT) Routine Exams 09/23/23 09:00 Ordered Multi-Disciplinary Progress Notes: Multi-Disciplinary Progress Notes 09/21/23 15:20 Nutrition Note by Phyllis Diaz F/u Note; Pt NPO. Note pt with inadequate oral intake x 6 days. Recommend alt feeding method. Dwaine MSRDCD Initialized on 09/21/23 15:20 - END OF NOTE 09/21/23 13:23 Case Management Note by Sandi Reyes MANAGER UTILIZATION REVIEW (MELA) CALLED TO CHECK ON PATIENT. OFFERED HER CONTACT INFORMATION FOR ANY NEEDS THAT SHE COULD ASSIST WITH FOR DISCHARGE. PHONE : [phone], FAX: [phone]. Initialized on 09/21/23 13:23 - END OF NOTE 09/21/23 11:05 Case Management Note by Yoselin Boss PATIENT DENIES ANY NEW NEEDS AT TIME OF DC. SHE CONTINUES TO PLAN TO DC HOME WITH NO NEW NEEDS. PATIENT STILL REQUIRING OXYGEN AT THIS TIME AT 2L/NC. O2 FORM PLACED ON CHART FOR WEEKEND USE. PATIENT HAS ELECTED TO USE [place] IF NEEDED. Initialized on 09/21/23 11:05 - END OF NOTE 09/21/23 09:30 (created 09/21/23 11:03) Case Management Note by Yoselin Boss PATIENT ON ROOM AIR 84-86% ON ROOM AIR LAYING DOWN- HAD PATIENT SIT UP ON SIDE OF BED SATS STILL 88%. PLACED ON 2L- SATS CAME UP TO 91%. PRIMARY RN, EDILBERTO COAT CHECKER, AND RT NOTIFIED Initialized on 09/21/23 11:03 - END OF NOTE Assessment/Plan (1) Tachycardia Current Visit: Yes Status: Acute Assessment & Plan: -No chest pain -EKG -Ddimer -CXR -Echo -TSH -metoprolol 12.5mg 09/20: -EKG with sinus tach otherwise unremarkable -TSH wnl -Ddimer elevated, CTA negative for PE -Echo pending -HR/BP still not controlled, will increase metoprolol to 25mg 09/21: -Echo pending -HR/BP improved with increased dose of metoprolol, will continue Code(s): R00.0 - TACHYCARDIA, UNSPECIFIED (2) Shortness of breath Current Visit: Yes Status: Acute Assessment & Plan: -On 1L, RA at baseline -RT consult -Nebs/INH prn -Supplemental oxygen for goal spo2>92 -CXR 09/21: -Unable to wean off of oxygen, requiring 1L -Will consult pulm, appreciate recs -She did have mild pleural effusion and using flutter/IS, will add lasix today to see if this helps 09/22: -Pulm consult with recs for ceftriaxone/azith/solumedrol -Continue lasix Code(s): R06.02 - SHORTNESS OF BREATH (3) HTN (hypertension) Current Visit: Yes Status: Acute Assessment & Plan: -Metoprolol 12.5 increased to 25mg -Hydralazine prn -Continue to monitor and adjust as appropriate 09/21: -Improved with increased dose of metoprolol 09/22: -Increase metoprolol to 50mg qd Code(s): I10 - ESSENTIAL (PRIMARY) HYPERTENSION (4) S/P colon resection Current Visit: Yes Status: Acute Assessment & Plan: -Surgery following -PODS#4 -FLD, +BM + flatus -Continue anti-emetics/pain control 09/20: -PODS#5 -Abdominal distention -Binder ordered -KUB showing ileus, surgery following, plan for NG if NV continues 09/21: -PODS#6 -N/V continues, patient declines NG tube -Pain improving with abdominal binder -BM+, Flatus+, encouraged ambulation, IS/Flutter therapy 09/22: -No longer having N/V, tolerating diet, +BM +flatus Code(s): Z90.49 - ACQUIRED ABSENCE OF OTHER SPECIFIED PARTS OF DIGESTIVE TRACT (5) Anemia Current Visit: Yes Status: Acute Assessment & Plan: -Continue to monitor and replace if hgb <7 Code(s): D64.9 - ANEMIA, UNSPECIFIED Additional CC's: BEE RODRIGUEZ Code(s): R00.0 - TACHYCARDIA, UNSPECIFIED Code(s): R00.0 - TACHYCARDIA, UNSPECIFIED Code(s): R00.0 - TACHYCARDIA, UNSPECIFIED (2) Shortness of breath Current Visit: Yes Status: Acute Code(s): R06.02 - SHORTNESS OF BREATH (3) HTN (hypertension) Current Visit: Yes Status: Acute Code(s): I10 - ESSENTIAL (PRIMARY) HYPERTENSION (4) S/P colon resection Current Visit: Yes Status: Acute Code(s): Z90.49 - ACQUIRED ABSENCE OF OTHER SPECIFIED PARTS OF DIGESTIVE TRACT (5) Anemia Current Visit: Yes Status: Acute Code(s): D64.9 - ANEMIA, UNSPECIFIED
[2023-09-22] MEDS: solu-MEDROL 40 MG, Sterile H2O 10 ml 1 ML IV SCH ×4 (05:33→21:18)
[2023-09-22 05:56] LABS: Absolute Neutrophil Ct (ANC) 8.31 x10^3/uL (1.4-6.9); BASOPHIL % 0.3 % (0.0-0.4); Basophil (Absolute #) 0.03 x10^3/uL (0-0.4); Eosinophil (Absolute #) 0 x10^3/uL (0-0.5); Hematocrit 33.9 % (35-47); Hemoglobin 10.3 g/dL (12.0-16.0); IMMATURE GRAN # 0.14 x10^3u/L (0.00-0.03); IMMATURE GRAN % 1.4 % (0.00-0.4); Lymphocyte (Absolute #) 0.91 x10^3/uL (1.0-4.6); Lymphocytes % 9.3 % (24.0-44.0); Mean Cell Volume 77.8 fL (78-100); Mean Corpuscular Hemoglobin 23.6 pg (26-32); Mean Corpuscular Hgb Concent. 30.4 g/dL (32-36); Mean Platelet Volume 10.5 fL (7.5-11.0); Monocyte (Absolute #) 0.38 x10^3/uL (0.0-1.3); Monocytes % 3.9 % (0.0-12.0); Neutrophil % 85.1 % (36.0-66.0); Platelet Count 283 x10^3/uL (150-450); Red Blood Count 4.36 x10^6/uL (4.1-5.4); Red Cell Distribution Width 18.3 % (11.5-14.0); White Blood Count 9.8 x10^3/uL (4.0-10.5)
[2023-09-22 06:28] LABS: ALBUMIN 3.7 g/dL (3.5-5.0); ANION GAP 17.7 MEQ/L (5-15); BILIRUBIN,TOTAL 0.4 mg/dL (0.2-1.3); Calcium 8.7 mg/dL (8.4-10.2); Creatinine 1 0.56 mg/dL (0.52-1.04); EST GLOMERULAR FILTRATION RATE 105.1 ML/MIN; MAGNESIUM 1.8 mg/dL (1.6-2.3); Potassium 3.8 mmol/L (3.5-5.1); Total Protein 6.7 g/dL (6.3-8.2)
[2023-09-22] MEDS: ROCEPHIN 1 Gm-D5w 50 ml Bag** 1 G/50 ML IVPB IV SCH (08:22)
[2023-09-22] MEDS: Lopressor 25MG Tab PO SCH ×2 (08:22→10:33)
[2023-09-22] MEDS: ENOXAPARIN SODIUM SQ SCH ×2 (08:22→21:18)
[2023-09-22] MEDS: Paxil 20 MG PO SCH (08:23)
[2023-09-22] MEDS: Singulair 10 MG PO SCH (08:23)
[2023-09-22] MEDS: FEOSOL 325 MG PO SCH (08:24)
[2023-09-22] MEDS: PROTONIX 40 MG IV IV SCH ×2 (08:25→21:18)
[2023-09-22] MEDS: SYNTHROID 88 MCG PO SCH (08:25)
[2023-09-22] MEDS: Zithromax 500 MG/ 250 ML NaCl Premix 500 MG/250 ML IVPB IV SCH (09:50)
[2023-09-22] MEDS: Lasix 40 MG/4 ML IV SCH (10:33)
[2023-09-22] MEDS: TYLENOL 325 MG PO PRN (19:35)
--- NOTE | 2023-09-23 05:23 | PCM.DS ---
Discharge Summary Date of Admission: 09/15/23 09:22 Date of Discharge: 09/23/23 Admitting Physician: MARISSA DOWNEY Consults: Consults on Case 09/19/23 10:25 Consult Physician ROUTINE 09/21/23 11:13 Consult Pulmonology ROUTINE Primary Care Provider: BEE ALONZO Allergies Allergies No Known Drug Allergies Allergy (Verified 09/15/23 09:28) Hospital Summary - Hospital Course Hospital Course: is a 58 year old female with a pmhx of hypothyroidism, GERD, and anxiety admitted under Dr. Downey 09/15/23 for a colon resection due to a cancerous mass. Patient is now PODS#8 with +BM, +flatus, and tolerating a diet with no N/V. During hospitalization patient has been unable to wean off of 2L oxygen, she has been tachycardic with HR in the 130/140's, and BP has been elevated in the 180/9 0's. Patient endorses that her shortness of breath is mostly with exertion. Hospitalist team was consulted for medical management. HR and BP has improved with the initiation of metoprolol which will continue on discharge. Patient continues to require oxygen. CT of the chest showed No evidence of pulmonary embolism and bilateral mild pleural effusions with bilateral basal atelectasis. Pulmonolgy consulted, patient started on ceftriaxone/azithromycin. Repeat cxr ordered showing improvement of infiltrate, small pleural effusions bilaterally. Will continue lasix for a week. No need to continue abx. Patient will require home oxygen which we will set up. She is cleared by surgery with follow up in one week. Patient is agreeable to plan, all questions and concerns addressed. Stable for discharge Discharge Note New Diagnosis: HTN/Tachycardia/ S/P colon resection New Medications: Metoprolol/lasix - home oxygen Follow Up: PCP/Surgery Results pending: Pathology Latest Assessment & Plan (1) Tachycardia Current Visit: Yes Status: Acute Assessment & Plan: -No chest pain -EKG -Ddimer -CXR -Echo -TSH -metoprolol 12.5mg 09/20: -EKG with sinus tach otherwise unremarkable -TSH wnl -Ddimer elevated, CTA negative for PE -Echo pending -HR/BP still not controlled, will increase metoprolol to 25mg 09/21: -Echo pending -HR/BP improved with increased dose of metoprolol, will continue Code(s): R00.0 - TACHYCARDIA, UNSPECIFIED (2) Shortness of breath Current Visit: Yes Status: Acute Assessment & Plan: -On 1L, RA at baseline -RT consult -Nebs/INH prn -Supplemental oxygen for goal spo2>92 -CXR 09/21: -Unable to wean off of oxygen, requiring 1L -Will consult pulm, appreciate recs -She did have mild pleural effusion and using flutter/IS, will add lasix today to see if this helps 09/22: -Pulm consult with recs for ceftriaxone/azith/solumedrol -Continue lasix Code(s): R06.02 - SHORTNESS OF BREATH (3) HTN (hypertension) Current Visit: Yes Status: Acute Assessment & Plan: -Metoprolol 12.5 increased to 25mg -Hydralazine prn -Continue to monitor and adjust as appropriate 09/21: -Improved with increased dose of metoprolol 09/22: -Increase metoprolol to 50mg qd Code(s): I10 - ESSENTIAL (PRIMARY) HYPERTENSION (4) S/P colon resection Current Visit: Yes Status: Acute Assessment & Plan: -Surgery following -PODS#4 -FLD, +BM + flatus -Continue anti-emetics/pain control 09/20: -PODS#5 -Abdominal distention -Binder ordered -KUB showing ileus, surgery following, plan for NG if NV continues 09/21: -PODS#6 -N/V continues, patient declines NG tube -Pain improving with abdominal binder -BM+, Flatus+, encouraged ambulation, IS/Flutter therapy 09/22: -No longer having N/V, tolerating diet, +BM +flatus Code(s): Z90.49 - ACQUIRED ABSENCE OF OTHER SPECIFIED PARTS OF DIGESTIVE TRACT (5) Anemia Current Visit: Yes Status: Acute Assessment & Plan: -Continue to monitor and replace if hgb <7 Code(s): D64.9 - ANEMIA, UNSPECIFIED I spent 35 minutes [id number] with the patient on the day of discharge performing discharge exam, discussing hospital stay and discharge instructions with patient and caregivers, preparation of discharge records, prescriptions & referral forms and addressing any questions/concerns the patient had as documented above. - Vitals & Intake/Output Vital Signs: Vital Signs Temperature 97.6 F 09/23/23 04:00 Pulse Rate 94 H 09/23/23 04:00 Respiratory Rate 18 09/23/23 04:00 Blood Pressure 143/74 09/22/23 23:36 O2 Sat by Pulse Oximetry 96 09/23/23 04:00 Intake & Output: Intake & Output 09/20/23 09/21/23 09/22/23 09/23/23 11:59 11:59 11:59 11:59 Intake Total 2354 900 2440 320 Balance 2354 900 2440 320 - Lab Result Diagrams: 09/23/23 05:37 09/23/23 05:37 Lab Results-Last 24 Hrs: Lab Results-Last 24 Hours 09/22/23 09/22/23 Range/Units 05:36 05:36 WBC 9.8 (4.0-10.5) x10^3/uL RBC 4.36 (4.1-5.4) x10^6/uL Hgb 10.3 L (12.0-16.0) g/dL Hct 33.9 L (35-47) % MCV 77.8 L (78-100) fL MCH 23.6 L (26-32) pg MCHC 30.4 L (32-36) g/dL RDW 18.3 H (11.5-14.0) % Plt Count 283 (150-450) x10^3/uL MPV 10.5 (7.5-11.0) fL Gran % 85.1 H (36.0-66.0) % Immature Gran % (Auto) 1.4 H (0.00-0.4) % Nucleat RBC Rel Count 0.0 (0.00-0.1) % Eos # (Auto) 0 (0-0.5) x10^3/uL Immature Gran # (Auto) 0.14 H (0.00-0.03) x10^3u/L Absolute Lymphs (auto) 0.91 L (1.0-4.6) x10^3/uL Absolute Monos (auto) 0.38 (0.0-1.3) x10^3/uL Absolute Nucleated RBC 0.00 (0.00-0.01) x10^3u/L Lymphocytes % 9.3 L (24.0-44.0) % Monocytes % 3.9 (0.0-12.0) % Eosinophils % 0.0 (0.00-5.0) % Basophils % 0.3 (0.0-0.4) % Absolute Granulocytes 8.31 H (1.4-6.9) x10^3/uL Basophils # 0.03 (0-0.4) x10^3/uL Sodium 133 L (137-145) mmol/L Potassium 3.8 (3.5-5.1) mmol/L Chloride 96 L (98-107) mmol/L Carbon Dioxide 24 (22-30) mmol/L Anion Gap 17.7 H (5-15) MEQ/L BUN 12 (7-17) mg/dL Creatinine 0.56 (0.52-1.04) mg/dL Estimated GFR 105.1 ML/MIN Glucose 121 H (74-106) mg/dL Calcium 8.7 (8.4-10.2) mg/dL Magnesium 1.8 (1.6-2.3) mg/dL Total Bilirubin 0.40 (0.2-1.3) mg/dL AST 27 (14-36) U/L ALT 21 (0-35) U/L Alkaline Phosphatase 68 (38-126) U/L Serum Total Protein 6.7 (6.3-8.2) g/dL Albumin 3.7 (3.5-5.0) g/dL Micro Results-Entire Visit: Microbiology 09/15/23 12:45 Urine Culture - Final Urine, Void NO GROWTH - Radiology Exams Ordered Rad Exams-Entire Visit: Radiology Procedures Category Date Time Status CHEST 2 VIEWS (PA AND LAT) Routine Exams 09/23/23 09:00 Ordered - Procedures and Test Procedures and Tests throughout Hospitalization: Therapy Orders & Screens 09/15/23 14:58 Oxygen Nasal Cannula 2 lpm Comment: to keep sats above 92% Diagnosis: sigmoid colon cancer 09/15/23 16:39 Incentive Spirometry UD Comment: Diagnosis: sigmoid colon cancer 09/19/23 12:33 EKG STAT Comment: Diagnosis: sigmoid colon cancer 09/20/23 00:15 Flutter Therapy UD Comment: Diagnosis: sigmoid colon cancer 09/22/23 07:00 Respiratory Therapy Assessment DAILY Comment: Diagnosis: sigmoid colon cancer Discharge Exam General Appearance: no apparent distress Neurologic Exam: alert, oriented x 3, cooperative Eye Exam: PERRL Ears, Nose, Throat Exam: normal ENT inspection Neck Exam: normal inspection Respiratory Exam: normal breath sounds, lungs clear Cardiovascular Exam: regular rate/rhythm, normal heart sounds Gastrointestinal/Abdomen Exam: soft, normal bowel sounds, other (abdominal incision with stables, covered in dressing, CDI, abdominal binder in place) Pelvic Exam: deferred Rectal Exam: deferred Back Exam: normal inspection Extremity Exam: normal inspection Skin Exam: normal color Wound Assessment: Skin/Wound Assessment Wound/Incision Assessment Start: 09/15/23 09:45 Text: Status: Active Freq: Q4H Protocol: Document 09/23/23 04:52 (Rec: 09/23/23 04:53 [id number]) Wound/Incision Assessment Anterior Abdomen Wound Assessment Shift Assessment Wound Type Incision Wound Stage Non Pressure Wound Dressing Status Changed Drainage Amount None General Appearance [place] Intact Surrounding Tissue [place] Primary Dressing BORDER DRESSING Comment Dressing is C/D/i Wound Photo Photo Taken No Final Diagnosis/Problem List - Final Discharge Diagnosis/Problem (1) Tachycardia Current Visit: Yes Status: Resolved Code(s): R00.0 - TACHYCARDIA, UNSPECIFIED (2) Shortness of breath Current Visit: Yes Status: Acute Code(s): R06.02 - SHORTNESS OF BREATH (3) HTN (hypertension) Current Visit: Yes Status: Chronic Code(s): I10 - ESSENTIAL (PRIMARY) HYPERTENSION (4) S/P colon resection Current Visit: Yes Status: Chronic Code(s): Z90.49 - ACQUIRED ABSENCE OF OTHER SPECIFIED PARTS OF DIGESTIVE TRACT (5) Anemia Current Visit: Yes Status: Acute Code(s): D64.9 - ANEMIA, UNSPECIFIED - Discharge Disposition: Home, Self-Care Condition: Stable Prescriptions: New Furosemide 20 mg [Lasix 20 mg] 20 mg PO DAILY 7 Days #7 tablet Metoprolol Tartrate 25 mg [Lopressor 25MG Tab] 50 mg PO DAILY 30 Days #60 tablet Continue Omeprazole 20 mg PO DAILY PARoxetine HCL [Paroxetine HCl] 15 mg PO DAILY Montelukast Sodium 10 mg [Singulair 10 MG] 10 mg PO DAILY Levothyroxine Sodium 88 Mcg [Synthroid 88 Mcg] 88 mcg PO DAILY Ferrous Sulfate [Iron] 325 mg PO DAILY Instructions: Colectomy Follow up with: BEE ALONZO NP [Primary Care Provider] - 10/01/23 9:00 am (faxed discharge paperwork to office) RUBI DONATO [ACTIVE STAFF] - MARISSA DOWNEY [ACTIVE STAFF] - 09/28/23 2:55 pm (at [place] office )
[2023-09-23 06:15] LABS: Absolute Neutrophil Ct (ANC) 8.62 x10^3/uL (1.4-6.9); BASOPHIL % 0.3 % (0.0-0.4); Basophil (Absolute #) 0.03 x10^3/uL (0-0.4); Eosinophil (Absolute #) 0 x10^3/uL (0-0.5); Hematocrit 35.1 % (35-47); Hemoglobin 10.5 g/dL (12.0-16.0); IMMATURE GRAN # 0.21 x10^3u/L (0.00-0.03); Lymphocytes % 10.5 % (24.0-44.0); Mean Cell Volume 78.3 fL (78-100); Mean Corpuscular Hemoglobin 23.4 pg (26-32); Mean Corpuscular Hgb Concent. 29.9 g/dL (32-36); Mean Platelet Volume 10.8 fL (7.5-11.0); Monocyte (Absolute #) 0.56 x10^3/uL (0.0-1.3); Monocytes % 5.3 % (0.0-12.0); Neutrophil % 81.9 % (36.0-66.0); Platelet Count 318 x10^3/uL (150-450); Red Blood Count 4.48 x10^6/uL (4.1-5.4); Red Cell Distribution Width 18.6 % (11.5-14.0); White Blood Count 10.5 x10^3/uL (4.0-10.5)
[2023-09-23 06:47] LABS: ALBUMIN 3.5 g/dL (3.5-5.0); ANION GAP 16.2 MEQ/L (5-15); BILIRUBIN,TOTAL 0.3 mg/dL (0.2-1.3); Calcium 8.5 mg/dL (8.4-10.2); Creatinine 1 0.68 mg/dL (0.52-1.04); EST GLOMERULAR FILTRATION RATE 100.3 ML/MIN; MAGNESIUM 2.1 mg/dL (1.6-2.3); Potassium 3.7 mmol/L (3.5-5.1); Total Protein 6.3 g/dL (6.3-8.2)
--- NOTE | 2023-09-23 07:59 | XRAY ---
Indication: Pneumonia. Status post colon surgery. Comparison: September 19, 2023 PA/lateral chest demonstrates improving bibasilar infiltrates/atelectasis with minimal residual. Minimal worsening small left and new small right effusions. Remaining heart and upper lungs unremarkable.
[2023-09-23 08:09] VITALS: RESP 16; TEMP 97.2; O2SAT 93
[2023-09-23] MEDS: Lopressor 25MG Tab PO SCH (08:37)
[2023-09-23] MEDS: FEOSOL 325 MG PO SCH (08:37)
[2023-09-23] MEDS: Singulair 10 MG PO SCH (08:37)
[2023-09-23] MEDS: SYNTHROID 88 MCG PO SCH (08:37)
[2023-09-23] MEDS: PROTONIX 40 MG IV IV SCH (08:38)
[2023-09-23] MEDS: Paxil 20 MG PO SCH (08:38)
[2023-09-23] MEDS: ENOXAPARIN SODIUM SQ SCH (08:39)
[2023-09-23] MEDS: Lasix 40 MG/4 ML IV SCH (08:39)
[2023-09-23] MEDS: ROCEPHIN 1 Gm-D5w 50 ml Bag** 1 G/50 ML IVPB IV SCH (08:41)
[2023-09-23] MEDS: Zithromax 500 MG/ 250 ML NaCl Premix 500 MG/250 ML IVPB IV SCH (09:25)
[2023-09-23] MEDS: solu-MEDROL 40 MG, Sterile H2O 10 ml 1 ML IV SCH ×2 (09:25)
[2023-09-23 12:13] VITALS: BP 134/69; PULSE 82
--- NOTE | 2023-09-24 10:17 | CONS ---
CONSULT DATE: 09/21/2023 HISTORY: Valorie Mantilla is a 58-year-old female with a consult placed with pulmonary medicine for evaluation of acute hypoxia with desaturation at rest. Upon evaluation, the patient reports that she has underwent appendectomy and sigmoidectomy following new findings of colon cancer. The chest x-ray was reviewed from 09/19/2023 that showed patchy bilateral infiltrates with atelectasis. CT chest was reviewed from 09/18/2023 which showed no pulmonary embolism, mild bilateral pleural effusion and atelectasis. The patient was admitted for further management. OBJECTIVE: 2 liters of O2, mild shortness of breath, minimal dyspnea on exertion. ASSESSMENT: 1) Acute hypoxic respiratory failure. 2) Acute hypoxia. 3) Oxygen desaturation. 4) Colon cancer. PLAN: The patient remains on 2 liters of O2 with minimal shortness of breath and minimal dyspnea on exertion. She is lying in bed comfortably. Chest x-ray and CT scans were both reviewed with findings consistent with patchy infiltrates and mild pleural effusion as well as atelectasis. Start Rocephin 1 gm IV daily, Zithromax 500 mg IV daily, Solu-Medrol 40 mg IV every 8 hours, DuoNeb every 4 hours while awake. The patient was encouraged to get out of bed, activity, ambulation and use of incentive spirometry. Repeat chest x-ray in 48 hours. The patient will require a home O2 evaluation if no improvement is noted. [place] the patient has been lying post-procedurally with secretions pooling and atelectasis due to lack of movement. Once the patient has started to move around the room and receive IV medications, it will improve her oxygenation. Dr. Jin Martinez to follow.
--- NOTE | 2023-09-24 11:14 | PROG NOTE ---
HISTORY: Miss Mantilla is a week out from her colon resection. It was performed last Sunday and she did well. She had a sigmoid resection through a low midline incision. She had some pulmonary insufficiency with low O2 saturations. She also had some hypertension. The hypertension has been addressed per the Hospitalist. The low O2 saturation pulmonary condition had been assessed by the Hospitalist. She is doing much better. She did get up and shower today. Incision is satisfactory. We will remove half of the patsy and Steri-Strips. She is eating. She is having bowel movements. Her O2 saturation is getting better but still marginal. She is staying today. She is hoping maybe to be discharged tomorrow. She is scheduled to come to the doctor's office on 09/28/2023. She can go home as is with half of the patsy in and half Steri-Strips on a soft mechanical diet. Ambulation and coughing is encouraged.
== END 2023-09-23 12:45 | disposition home or self-care (01) | DRG 330 ==
LOC: SDC 09:21 → MED SURG 09:22
PROVIDERS: ADMIT Surgery; ATTEND Surgery
PROC: 0DTN0ZZ Resection of Sigmoid Colon, Open Approach (ICD-10-PCS; principal; 2023-09-16)
PROC: 0DJD8ZZ Inspection of Lower Intestinal Tract, Via Natural or Artificial Opening Endoscopic (ICD-10-PCS; 2023-09-16)
DX: C18.7 Malignant neoplasm of sigmoid colon (principal); I97.191 Other postprocedural cardiac functional disturbances following other surgery; R00.0 Tachycardia, unspecified; R06.02 Shortness of breath; I10 Essential (primary) hypertension; E03.9 Hypothyroidism, unspecified; R19.5 Other fecal abnormalities; K21.9 Gastro-esophageal reflux disease without esophagitis; D64.9 Anemia, unspecified; F41.9 Anxiety disorder, unspecified; Z90.49 Acquired absence of other specified parts of digestive tract; Z79.899 Other long term (current) drug therapy; Z20.828 Contact with and (suspected) exposure to other viral communicable diseases
CPT/HCPCS: 36415; 71045; 71046; 71260; 74021; 80048; 80053; 80061; 83721; 83735; 84132; 84443; 85025; 85027; 85379; 87086; 88304; 88307; 88309; 88341; 88342; 93005; 93306; 94667; 94760; 94762; 99140; J0360; J0456; J0694; J0696; J1100; J1170; J1650; J1940; J2250; J2270; J2405; J2704; J2920; J3010; J3480; L0625; Q3014; A9270-GY

== ENCOUNTER 2024-08-29 05:59 | Day surgery (SDC) | payer OTHER ==
[2024-08-29 06:25] VITALS: RESP 16
[2024-08-29] MEDS: Lactated Ringers 1,000 ML IV SCH (06:43)
[2024-08-29 06:46] LABS: BASOPHIL % 0.5 % (0.1-1.2); Basophil (Absolute #) 0.04 x10^3/uL (0.01-0.08); Eosinophil % 1.9 % (0.7-5.8); Eosinophil (Absolute #) 0.14 x10^3/uL (0.04-0.36); Hematocrit 39.6 % (34.1-44.9); Hemoglobin 13.4 g/dL (11.2-15.7); IMMATURE GRAN # 0.02 x10^3u/L (0.001-0.031); IMMATURE GRAN % 0.3 % (0.001-0.429); Lymphocyte (Absolute #) 2.18 x10^3/uL (1.18-3.74); Lymphocytes % 29.3 % (19.3-51.7); Mean Cell Volume 91.5 fL (79.4-94.8); Mean Corpuscular Hemoglobin 30.9 pg (25.6-32.2); Mean Corpuscular Hgb Concent. 33.8 g/dL (32.2-35.5); Mean Platelet Volume 10.3 fL (9.4-12.3); Monocyte (Absolute #) 0.57 x10^3/uL (0.24-0.86); Monocytes % 7.7 % (4.7-12.5); Neutrophil % 60.3 % (34.0-71.1); Platelet Count 216 x10^3/uL (182-369); Red Blood Count 4.33 x10^6/uL (3.93-5.22); Red Cell Distribution Width 12.3 % (11.7-14.4); White Blood Count 7.5 x10^3/uL (3.98-10.04)
[2024-08-29 07:02] LABS: ANION GAP 11.4 MEQ/L (5-15); Calcium 8.9 mg/dL (8.4-10.2); Creatinine 1 0.81 mg/dL (0.52-1.04); EST GLOMERULAR FILTRATION RATE 83.1 ML/MIN; Potassium 3.4 mmol/L (3.5-5.1)
[2024-08-29] MEDS ORDERED: Zofran 4 MG/2 ML VIAL ONE (07:26)
[2024-08-29] MEDS ORDERED: Pepcid 20 MG VIAL IV ONE (07:33)
[2024-08-29] MEDS: Zofran 4 MG/2 ML VIAL IV ONE (07:34)
[2024-08-29] MEDS: Pepcid 20 MG VIAL IV ONE (07:34)
[2024-08-29] MEDS ORDERED: DIPRIVAN 200 MG/20 ML IV ONE (08:02)
[2024-08-29 08:50] VITALS: TEMP 98.8
[2024-08-29 09:06] VITALS: BP 128/70; PULSE 65; O2SAT 98
--- NOTE | 2024-08-30 14:12 | OP ---
SURGERY DATE/TIME: 08/29/2024 [id number] PREOPERATIVE DIAGNOSIS: Personal history of colon cancer. POSTOPERATIVE DIAGNOSIS: Stenotic area in the left colon. Otherwise, no evidence of neoplasia was noted PROCEDURE: Colonoscopy. SURGEON: Lokesh Koch MD ANESTHESIA: Medication given by the anesthesia department. HISTORY: The patient is a 59-year-old white female presenting now 1 year after her previous diagnosis of colon cancer. She had a resection. She is currently having no problems but presents for re-evaluation. The patient was appraised of the risks of the procedure including risk of perforation, phlebitis, untoward reaction to medication, bleeding, and missed lesions. The patient verbalized her understanding and desired to have procedure performed. DESCRIPTION OF PROCEDURE AND FINDINGS: The patient was given medication by the anesthesia department. She had continuous pulse oximetry, ECG monitoring, and intermittent blood pressure monitoring during the examination. She was placed in the left lateral decubitus position. Digital rectal examination was performed and revealed normal anal sphincter tone and no masses. The flexible Olympus videocolonoscope was used to intubate the rectum. A view of the colon was developed sequentially to the cecum. Upon insertion and withdrawal was noted a stenotic area that measured approximately 2 to 2.5 cm across in the sigmoid colon at its most narrow point. No other evidence of neoplasia was noted in or around the area or anywhere else in the colon. The scope was removed. The patient tolerated the procedure well and was sent back to outpatient recovery in good condition. The prep was noted to be fair to good.
== END 2024-08-29 09:07 | disposition home or self-care (01) ==
LOC: SDC 05:59
PROVIDERS: ATTEND Family Medicine
DX: Z08 Encounter for follow-up examination after completed treatment for malignant neoplasm (principal); Z85.038 Personal history of other malignant neoplasm of large intestine; K56.699 Other intestinal obstruction unspecified as to partial versus complete obstruction
CPT/HCPCS: 36415; 80048; 85025; 93005; J2405; J2704